=== PATIENT | female | born 1950 | race Caucasian/White ===

== ENCOUNTER → 2018-01-17 | Outpatient (CLI) | payer OTHER ==
[~2018-01-17] MED LIST: ASPIR-LOW81 MG PO; COREG25 MG PO; COUGH & COLD S237 ML; DIGOXIN250 MCG PO; GLUCOPHAGE500 MG PO; GLYBURIDE 5 MG T5 M1 PO; JANTOVEN5 MG PO; LANOXIN 0.250.25 M1 PO; LASIX 20 MG TAB20 MG PO; LASIX 40 MG TAB40 M2 PO; LEVAQUIN 500 M500 M2 PO; LISINOPRIL10 MG; LISINOPRIL10 MG PO; LOPRESSOR 50 MG50 M1 PO; MINIPRIN81 MG PO; NASONEX17 GM NASAL; POTASSIUM20 PO; TESSALON PERLE100 MG PO; TOPROL XL100 MG PO; TRIAMTERENE-HC1 EAC3 PO; ZESTORETIC 20-1 EAC3 PO
== END ==
LOC: M.RAD 16:00
DX: Z12.31 Encounter for screening mammogram for malignant neoplasm of breast (principal)

== ENCOUNTER → 2018-03-13 | Outpatient (CLI) | payer OTHER ==
--- NOTE | 2018-03-13 16:04 | 2DMMODE ---
[place] [address] 2 D/M-MODE ECHOCARDIOGRAM Name: RACQUEL JEAN-BAPTISTE Room: [facility]#: [id number] Admission: 03/13/18 Attend Phys: Mimi Augustin, Discharge: Date of : 48 Date of Service: 03/13/18 1603 Report #: [id number] THIS REPORT FOR: //name// APPROVED REPORT Study performed: 03/13/2018 15:09:14 EXAM: Comprehensive 2D, Doppler, and color-flow Echocardiogram Patient Location: Out-Patient Status: routine BSA: 1.94 HR: 73 bpm BP: 134/68 mmHg Other Information Study Quality: Good Indications Atrial Fibrillation 2D Dimensions IVSd: 10.16 (7-11mm) LVOT Diam: 20.81 (18-24mm) LVDd: 54.64 mm PWd: 8.87 (7-11mm) Ascending Ao: 33.97 (22-36mm) LVDs: 36.66 (25-40mm) Aortic Root: 25.57 mm Volumes Left Atrial Volume (Systole) LA ESV Index: 48.70 mL/m2 Aortic Valve AoV Peak Christos.: 1.34 m/s AO Peak Gr.: 7.16 mmHg LVOT Max P.08 mmHg AO Mean Gr.: 3.83 mmHg LVOT Mean P.31 mmHg LVOT Max V: 0.88 m/s AO V2 VTI: 21.82 cm LVOT Mean V: 0.52 m/s NOEMI (VTI): 2.34 cm2 LVOT V1 VTI: 15.02 cm AI [place]: 2.34 m/s2 AI PHT: 481.45 ms Mitral Valve MV Decel. Time: 227.70 ms MV PHT: 66.03 [place] [address] 2 D/M-MODE ECHOCARDIOGRAM Name: RACQUEL JEAN-BAPTISTE Room: [facility]#: [id number] Admission: 03/13/18 Attend Phys: Mimi Augustin, Discharge: Date of : 48 Date of Service: 03/13/18 1603 Report #: [id number] MVA (PHT): 3.33 cm2 TDI Medial E' Christos.: 0.13 m/s Lateral E' Christos.: 0.13 m/s Pulmonary Valve PV Peak Christos.: 1.25 m/s PV Peak Gr.: 6.25 mmHg Tricuspid Valve RAP Estimate: 5.00 mmHg TR Peak Gr.: 27.19 mmHg RVSP: 32.19 mmHg PA Pressure: 32.19 mmHg Left Ventricle The left ventricle is normal size. There is normal LV segmental wall motion. There is normal left ventricular wall thickness. Left ventricular systolic function is normal. LVEF is 50-55%. This study is not technically sufficient to allow evaluation of the LV diastolic function due to atrial fibrillation. Right Ventricle The right ventricle is normal size. The right ventricular systolic function is normal. Atria Left atrium is moderately dilated. Right atrium is moderately dilated. Aortic Valve The aortic valve is normal in structure. Mild aortic regurgitation. There is no aortic valvular stenosis. Mitral Valve The mitral valve is normal in structure. Mild mitral regurgitation. No evidence of mitral valve stenosis. Tricuspid Valve The tricuspid valve is normal in structure. Mild tricuspid regurgitation. The RVSP is 30-35 mmHg. Pulmonic Valve The pulmonary valve is normal in structure. Mild pulmonic regurgitation[place] [address] 2 D/M-MODE ECHOCARDIOGRAM Name: NAUN JEAN-BAPTISTEZBIETA Jack Room: [facility]#: [id number] Admission: 03/13/18 Attend Phys: Mimi Augustin, Discharge: Date of : 48 Date of Service: 03/13/18 1603 Report #: [id number] The aortic root is normal in size. IVC is normal in size and collapses >50% with inspiration. Pericardium There is no pericardial effusion. <Conclusion> The left ventricle is normal size. There is normal left ventricular wall thickness. Left ventricular systolic function is normal. LVEF is 50-55%. This study is not technically sufficient to allow evaluation of the LV diastolic function due to atrial fibrillation. Left atrium is moderately dilated. Right atrium is moderately dilated. Mild aortic regurgitation. Mild mitral regurgitation. Mild tricuspid regurgitation. The RVSP is 30-35 mmHg. <ELECTRONICALLY SIGNED> By: Neymar Chanel MD, FACC 03/13/18 1603 1603 1603 Neymar Chanel MD, FACC /INF
== END ==
LOC: M.CRD 14:46
DX: I08.3 Combined rheumatic disorders of mitral, aortic and tricuspid valves (principal); I48.91 Unspecified atrial fibrillation; I11.0 Hypertensive heart disease with heart failure; I50.9 Heart failure, unspecified

== ENCOUNTER → 2018-03-27 | Outpatient (CLI) | payer OTHER | LOC: M.RAD 16:07 | DX: I51.7 Cardiomegaly (principal); R06.02 Shortness of breath ==

== ENCOUNTER → 2020-07-22 | Outpatient (CLI) | payer MEDICARE ==
[~2020-07-22] MED LIST changes: +AMARYL2 M1 PO; +CARDIZEM CD120 MG PO; +CEFDINIR300 MG PO; +COZAAR 25 MG TA25 M1 PO; +COZAAR100 MG PO; +DILTIAZEM ER180 M2 PO; +EFFER-K 20 MEQ20 ME1 PO; +ELIQUIS5 MG PO; +FUROSEMIDE 40 M40 MG PO; +HYDRALAZINE 2525 MG PO; +KAPSPARGO SPRI200 MG PO; +KLOR-CON M2020 MEQ PO; +LANOXIN 0.25M0.25 M1 PO; +LANOXIN125 MCG PO; +METFORMIN HCL500 MG PO; +PROTONIX40 M2 PO
== END ==
LOC: M.RAD 15:27
PROVIDERS: ATTEND Registered Nurse Diabetes Educator
DX: J15.5 Pneumonia due to Escherichia coli (principal)